=== PATIENT | male | born 1960 | race Caucasian/White ===

== ENCOUNTER 2019-10-08 18:40 | Inpatient (IN) | payer OTHER, SELFPAY ==
[2019-10-08] MEDS ORDERED: EPINEPHrine 1 MG/ML AMP ONE (18:42)
[2019-10-08] MEDS ORDERED: Sodium Chloride 0.9% 1,000 ML ONE ×2 (18:46→20:33)
[2019-10-08] MEDS ORDERED: methylPREDNISolone Sod Succ/PF 125 MG/2 ML VIAL ONE (18:47)
[2019-10-08] MEDS ORDERED: Famotidine In NaCl 20 mg/50 ml Premix Bag ONE (18:47)
[2019-10-08] MEDS ORDERED: Ondansetron PF 4 MG/2 ML Vial ONE (19:05)
--- NOTE | 2019-10-08 19:26 | RAD ---
Exam: Chest one view HISTORY:Dyspnea. Comparison: None FINDINGS: Cardiac silhouette: Normal Aorta: Unremarkable Pulmonary vessels: Normal Costophrenic angles: Clear LUNGS: Hypoventilation, likely due to a poor inspiratory effort. Resultant increased accentuation of the lung parenchyma. No masses or consolidation. Pneumothorax: None Osseous abnormalities: None IMPRESSION: No acute cardiopulmonary process.
[2019-10-08 19:35] LABS: Anion Gap 23 mmol/L (10-20); BUN (Urea Nitrogen) 14 mg/dL (8.4-25.7); Calc. Creatinine Clearance 0 mL/min (70-130); Calcium 9.4 mg/dL (7.8-10.44); Carbon Dioxide 18 mmol/L (22-29); Chloride 105 mmol/L (98-107); Estimated GFR-MDRD 42; Glucose 147 mg/dL (70-105); Potassium 3.5 mmol/L (3.5-5.1); Sodium 142 mmol/L (136-145)
[2019-10-08 19:37] LABS: Hemoglobin 15.1 g/dL (14.0-18.0); Mean Corpuscular HGB CONC 32.5 g/dL (32.0-36.0); Mean Corpuscular Hemoglobin 28.6 pg (27.0-31.0); Mean Corpuscular Volume 87.9 fL (78.0-98.0); Platelet Count 334 thou/uL (130-400); RBC Distribution Width 12.6 % (11.5-14.5); Red Blood Cell (RBC) Count 5.28 mill/uL (4.70-6.10); White Blood Cell (WBC) Count 19.2 thou/uL (4.8-10.8)
[2019-10-08 19:38] LABS: MDiff Complete? YES
[2019-10-08 19:40] LABS: Band 1 % (5-11); Burr Cells SLIGHT = 2-5 cells (100X) (0-1/hpf); Lymphocytes 30 % (21-51); Monocytes 4 % (0-10); Neutrophil 61 % (42-75); Reactive Lymphocytes 4 % (0-10)
[2019-10-08] MEDS ORDERED: Ondansetron PF 4 MG/2 ML Vial SLOW IVP PRN (23:19)
[2019-10-08] MEDS ORDERED: Ondansetron ODT 4 MG TAB PO PRN (23:19)
[2019-10-08] MEDS ORDERED: Acetaminophen 325 MG TAB PO PRN (23:19)
[2019-10-08] MEDS ORDERED: Sodium Chloride 0.9% 1,000 ML IV SCH (23:19)
[2019-10-08] MEDS ORDERED: diphenhydrAMINE 50 MG/ML VIAL IVP PRN (23:21)
[2019-10-08] MEDS ORDERED: Bacteriostatic Water 30 ML VIAL FS PRN (23:22)
[2019-10-08 23:45] VITALS: BMI 29.2
[2019-10-09] MEDS: methylPREDNISolone Sod Succ/PF 125 MG/2 ML VIAL IVP SCH ×2 (00:41→05:31)
[2019-10-09 04:57] LABS: Platelet Count 217 thou/uL (130-400)
[2019-10-09 05:11] LABS: Hemoglobin 13.4 g/dL (14.0-18.0); Mean Corpuscular HGB CONC 32.8 g/dL (32.0-36.0); Mean Corpuscular Hemoglobin 28.9 pg (27.0-31.0); Mean Corpuscular Volume 88.1 fL (78.0-98.0); Mean Platelet Volume 9.8 fL (7.4-10.4); RBC Distribution Width 12.7 % (11.5-14.5); Red Blood Cell (RBC) Count 4.66 mill/uL (4.70-6.10); White Blood Cell (WBC) Count 19.1 thou/uL (4.8-10.8)
[2019-10-09 05:18] LABS: Band 11 % (5-11); Hypochromia SLIGHT = 6-15 cells (100X) (0-5/hpf); Lymphocytes 3 % (21-51); MDiff Complete? YES; Microcytosis SLIGHT = 6-15 cells (100X) (0-5/hpf); Monocytes 4 % (0-10); Neutrophil 82 % (42-75)
[2019-10-09 05:19] LABS: Platelet Morphology Comment Appears Adequate
[2019-10-09 05:27] LABS: Anion Gap 16 mmol/L (10-20); BUN (Urea Nitrogen) 20 mg/dL (8.4-25.7); Calc. Creatinine Clearance 74 mL/min (70-130); Carbon Dioxide 18 mmol/L (22-29); Chloride 110 mmol/L (98-107); Estimated GFR-MDRD 55; Glucose 155 mg/dL (70-105); Potassium 4.5 mmol/L (3.5-5.1); Sodium 139 mmol/L (136-145)
[2019-10-09] MEDS ORDERED: diphenhydrAMINE 50 MG/ML VIAL IVP SCH (06:00)
[2019-10-09] MEDS ORDERED: Sodium Chloride 0.9% 1,000 ML BAG ONE (06:35)
[2019-10-09 08:34] VITALS: BP 122/69; TEMP 98.1
[2019-10-09] MEDS ORDERED: Famotidine/PF 20 mg/2ml Vial SLOW IVP SCH ×2 (09:00→21:00)
--- NOTE | 2019-10-09 13:51 | HP ---
HISTORY AND PHYSICAL / DISCHARGE SUMMARY: FINAL DIAGNOSIS: Anaphylaxis secondary to multiple bee stings. SUMMARY: Patient is a 59-year-old white male, who has been in good health and has not had any medical problems nor is he on any routine medications. The patient was working, clearing a fence row of brush on a tractor when he disturbed a large bee nest. He was immediately swarmed by the bees. He tried getting away from the bees, but was unsuccessful ended up jumping into a pond afterwards. He called his who came and he took Benadryl 50 mg. He was feeling lightheaded and hurting and felt a little short of breath. He had multiple bee stings over his head and trunk of his bodies and arms. In the emergency room when he first presented, he was alert and talkative, but blood pressure was low with initial blood pressure of 57/43 with a pulse of 106 and an O2 saturation of 99% on room air. He did not appear in any acute respiratory distress. There was no swelling about his face or tongue and his lungs were clear. He was thought to be having an anaphylactic reaction to the multiple bee stings. He was given epinephrine 0.3 mg IM and then IV had been established and he received Benadryl 50 mg, Solu-Medrol 125 mg, and was started on IV fluids. Almost immediately after the epinephrine, his blood pressure came up to 117 systolic and then upped into the 130s over 70s and there it remained and his pulse gradually came down to the 80s and 90s and blood pressure maintained in 130s to 140s and O2 saturation 99. His chest x-ray was clear. He had multiple bee stings over his trunk and the face and arms. Multiple stingers were removed. His initial lab study showed elevation of his glucose to 147, but he was nonfasting , and his white cell count was elevated at 19,000 with 61% segs, 1% bands, which all was felt to be from a stress reaction with demargination. The patient did fine and he said he felt much better, the achiness had resolved. The patient had felt he had had an anaphylactic reaction to the multitude of bee stings. He had never had a reaction to previous bee stings or wasp stings. He felt he wanted to go home because he was feeling back fine, but ER doctor had recommended that he stay overnight, to which he was agreeable to. The patient was seen early on the morning of 10/09/19. He said he slept good. He felt good. He was not hurting. He has had no trouble breathing or swallowing and no swelling in his mouth. He said that he has not had any achiness. He has multiple little sting sites that he said felt better and he feels ready to go home. Nurses report that he has had no problem during the night. His repeat CBC this morning showed white cell count was still 19,100 with 82% segs and 11% bands, all that felt to be secondary to demargination from the stress reaction what had occurred and probably also the addition of the steroids. His repeat blood sugar this morning fasting was 155. This will be followed up as an outpatient. This may be stress related. PAST HISTORY: The patient has had no surgeries or hospitalizations. PRESENT MEDICINES: None prior to hospitalization. ALLERGIES: NO KNOWN ALLERGIES. REVIEW OF SYSTEMS: GENERAL: The patient has had no chills or fever. The patient has had no recent weight gain or loss. HEAD AND NECK: No complaints. PULMONARY: No shortness of breath. CARDIOVASCULAR: No chest pain. GI: No complaint. He has had no recurrence of the nausea. No vomiting. No change in bowel habits. : No complaints. NEUROPSYCHIATRIC: No complaints. DERMATOLOGIC: The patient said he still has a little mild soreness at some of the bee sting sites. Otherwise, he thinks he is doing fine. HABITS: Alcohol occasionally. Patient will have a beer. Tobacco, the patient smokes about a pack of cigarettes a day. SOCIAL HISTORY: The patient is . CODE STATUS: Full code. PHYSICAL EXAMINATION: GENERAL: A very pleasant 59-year-old white male, who is sitting up in bed. He is alert, talkative, appears comfortable and in no distress. VITAL SIGNS: This morning shows a temperature of 98.1, pulse 78, respirations 17, O2 saturation 96% on room air, blood pressure 122/69. HEENT: Head, normocephalic. Eyes, pupils are equal, round, and reactive. Ears , TMs are clear. Nose, normal. Mouth and throat, normal. NECK: Carotids are equal and strong. No bruits. Thyroid not enlarged. LUNGS: Clear. HEART: Regular rate. No murmurs. ABDOMEN: Soft. No organomegaly. No areas of tenderness. EXTREMITIES: No edema. NEUROLOGIC: The patient alert, oriented x3 with excellent muscle strength throughout and no focal weakness. DERMATOLOGIC: The patient has multiple pustules along his lower abdomen and waistline, flanks and back. He also has similar tiny little red spots on his arms from where he had bee stings on the arms. IMPRESSION: 1. Anaphylaxis secondary to multiple bee stings. a.Symptoms resolved with initial treatment of epinephrine, steroids, Benadryl, and IV fluids. 2. Abnormal fasting blood sugar, possibly related to the steroids. 3. Cigarette abuse. PLAN: The patient has been watched overnight, has not had any trouble. He has been stable with vitals signs. He is having no breathing difficulty and feel like that he can be now managed at home. We will discharge him on a tapering dose of steroids and will see patient in the office with a basic metabolic panel and hemoglobin A1c. DISPOSITION: 1. Diet, regular diet. 2. Activities, the patient should gradually increase his activity and avoid working in the heat. MEDICATIONS: 1. Prednisone 5 mg 8 tablets daily times 3 days, then taper by one tablet a day over 7 days. 2. Benadryl 25 mg 2 every 4 hours if needed. 3. We will give the patient an epinephrine emergency injection kit in the event of future stings. CODE STATUS: Full code. Job ID: [id number]
[2019-10-09 17:07] LABS: SARS-CoV-2 MS2 Positive; SARS-CoV-2 N Gene Negative; SARS-CoV-2 S Gene Negative; SARS-CoV-2 by NAA Not Detected (NotDetected); SARS-CoV-2 orf1ab Negative
== END 2019-10-09 09:30 | disposition home or self-care (01) | DRG 918 ==
LOC: MADERS 18:40 → MADMS 22:09
PROVIDERS: ADMIT Family Medicine; ATTEND Family Medicine
DX: T63.441A Toxic effect of venom of bees, accidental (unintentional), initial encounter (principal); T78.2XXA Anaphylactic shock, unspecified, initial encounter; F19.10 Other psychoactive substance abuse, uncomplicated; Y92.89 Other specified places as the place of occurrence of the external cause
CPT/HCPCS: 36415; 71045; 80048; 85025; 87635; 93005; 94760; J0171; J1200; J2405; J2930; J7050; U0003